=== PATIENT | female | born 1955 | race Caucasian/White ===

== ENCOUNTER 2018-11-27 09:39 | Emergency (ER) | payer OTHER ==
[~2018-11-27] VITALS: Ht 147.3 cm; Wt 70.3 kg
[2018-11-27 09:58] VITALS: BP_SYST 161
--- NOTE | 2018-11-27 10:39 | NUR ---
Patient to ER bed 8 to gown for evaluation. Side rails up. Report given to [place] BENITEZ.
--- NOTE | 2018-11-27 10:54 | NUR ---
Patient is awake, alert, and oriented x4. Patient states that yesterday she fell after parking her car, tripping on the cement bumper stop, striking her left hip, her left lower rib cage struck the sidewalk curb. Patient presents with bruising to right upper thigh, aching pain 10/10 to left lower rib cage.
--- NOTE | 2018-11-27 11:15 | NUR ---
ER Dr. Lobo at bedside examining patient.
--- NOTE | 2018-11-27 11:45 | NUR ---
Patient given written and verbal discharge instructions and verbalizes understanding. ER MD discussed with patient the results and treatment provided. Patient in stable condition. ID arm band removed. Rx of norco 5-325 given. Patient educated on pain management and to follow up with PMD. Pain Scale 3/10, MD is aware. Opportunity for questions provided and answered. Medication side effect fact sheet provided.
[2018-11-27 11:52] VITALS: BP_SYST 145
== END 2018-11-27 11:52 | disposition home or self-care (01) ==
LOC: SED 09:39
DX: S20.212A Contusion of left front wall of thorax, initial encounter (principal); W01.0XXA Fall on same level from slipping, tripping and stumbling without subsequent striking against object, initial encounter; Y93.89 Activity, other specified; Y92.89 Other specified places as the place of occurrence of the external cause; Y99.8 Other external cause status
CPT/HCPCS: 71045; 71100; 99284

== ENCOUNTER 2018-12-26 08:19 | Inpatient (IN) | payer OTHER ==
[~2018-12-26] VITALS: Ht 149.9 cm; Wt 68.0 kg
--- NOTE | 2018-12-26 08:19 | NUR ---
BROUGHT BACK TO BED #7 AND TRIAGED. REPORT GIVEN TO ZAHEER
[2018-12-26 08:20] VITALS: BP_SYST 167
--- NOTE | 2018-12-26 08:20 | NUR ---
PATIENT CAME IN COMPLAINING OF CHEST PAIN 11/24 THAT STARTED TODAY. PATIENT STATES SHE WAS VOMITING ALL NIGHT. PATIENT STATES SHE ATE CHICKEN WINGS LAST NIGHT AND STARTED VOMITING AFTER THAT. PATIENT DENIES NASUEA AT THE MOMENT. PATIENT LIGHTHEADED AND DIAPHORETIC. PATIENT DENIES SOB AND BLURRED VISION. PATIENT ALERT AND ORIENTED X4.
--- NOTE | 2018-12-26 08:37 | NUR ---
ER Dr. BANDA at bedside examining patient.
[2018-12-26] MEDS ORDERED: ASPIRIN 81 MG TAB.CHEW PO ONE (08:45)
[2018-12-26] MEDS ORDERED: NACL 0.9% 1,000 ML IV ONE ×2 (08:45→10:15)
[2018-12-26] MEDS ORDERED: NITROGLYCERIN 1 INCH (GM) OINT. TP ONE (08:45)
--- NOTE | 2018-12-26 09:00 | NUR ---
# 18 gauge angiocath placed to right AC. Use of asceptic technique. Opsite placed over site. Blood return noted. Blood for lab drawn from site. Flushed with 10 cc of normal saline. No evidence of infiltration noted. Patient tolerated well.
[2018-12-26 09:08] LABS: BASOPHILS % (AUTO) 0.3 % (0.0-2.0); HEMATOCRIT 37.1 % (36-48); LYMPHOCYTES # (AUTO) 1.2 K/uL (1.0-5.5); LYMPHOCYTES % (AUTO) 9.5 % (20.5-51.5); MEAN CORPUSCULAR HEMOGLOBIN 32 pg (27-31); MEAN CORPUSCULAR HGB CONC 35 % (32-36); MEAN CORPUSCULAR VOLUME 92 fL (79.0-98.0); NEUTROPHILS # (AUTO) 10.2 K/uL (1.8-7.7); NEUTROPHILS % (AUTO) 82.2 % (40.0-70.0); PLATELET COUNT (AUTO) 230 K/uL (130-430); RED BLOOD CELL COUNT(AUTO) 4.03 MIL/uL (4.2-6.2); RED CELL DISTRIBUTION WIDTH 15.4 % (9.0-15.0); WHITE BLOOD COUNT (AUTO) 12.4 K/uL (4.8-10.8)
--- NOTE | 2018-12-26 09:16 | NUR ---
PATIENT GETTING X RAY IN BED.
--- NOTE | 2018-12-26 09:25 | NUR ---
PATIENT COMPLAINING OF NAUSEA. DR SOLO FERNANDEZ.
[2018-12-26 09:27] LABS: CALCIUM 8.8 mg/dL (8.4-11.0); CREATININE 1.09 mg/dL (0.55-1.30)
[2018-12-26 09:31] LABS: ALBUMIN 4.4 g/dL (3.4-4.8); TOTAL BILIRUBIN 0.7 mg/dL (0.0-1.0)
[2018-12-26] MEDS ORDERED: ONDANSETRON HCL 4 MG/2 ML VIAL IVP ONE (09:45)
[2018-12-26 09:50] LABS: INR 1.1 (0.8-1.2); PROTHROMBIN TIME 10.7 SECS (9.5-12.5)
--- NOTE | 2018-12-26 09:52 | NUR ---
SPOKE TO PATIENT ABOUT END OF LIFE CARE. PATIENT STATES SHE IS FULL CODE.
[2018-12-26 09:57] LABS: BARBITURATE, URINE NEGATIVE (NEG <=200); BENZODIAZEPINE, URINE NEGATIVE (NEG <=150); CANNABINOID, URINE NEGATIVE (NEG <=50); COCAINE, URINE NEGATIVE (NEG <=150); METHAMPHETAMINES SCREEN,URINE NEGATIVE (NEG <=500); OPIATE, URINE NEGATIVE (NEG <=100); PHENCYCLIDINE SCREEN,URINE NEGATIVE (NEG <=25); UR TRICYCLIC ANTIDEPRESSANTS NEGATIVE (NEG <=300); URINE AMPHETAMINE NEGATIVE (NEG <=500); URINE METHADONE NEGATIVE (NEG <=200); URINE OXYCODONE SCREEN NEGATIVE (NEG <=100); URINE PROPOXYPHENE SCREEN NEGATIVE (NEG <=300)
[2018-12-26] MEDS ORDERED: POTASSIUM CHLORIDE 20 MEQ TAB.PRT.SR PO ONE (10:00)
[2018-12-26] MEDS ORDERED: POTASSIUM CHLORIDE 40 MEQ in NS 250 ML IV ONE (10:00)
[2018-12-26] MEDS ORDERED: PIPERACILLIN/TAZO 3.375 GM in NS 50 ML IV ONE (10:00)
--- NOTE | 2018-12-26 10:01 | NUR ---
Medication reconciliation completed with information provided by PATIENT. Any prior medication reconciliation on file was reviewed and corrected.
[2018-12-26 10:03] LABS: BILIRUBIN,URINE NEGATIVE (NEGATIVE); BLOOD, URINE 1+ (NEGATIVE); CLARITY/URINE CLEAR (CLEAR); COLOR,URINE YELLOW (YELLOW); GLUCOSE,URINE NEGATIVE (NEGATIVE); KETONES,URINE TRACE (NEGATIVE); LEUKOCYTE ESTERASE ,URINE TRACE (NEGATIVE); NITRITE, URINE NEGATIVE (NEGATIVE); PROTEIN URINE 2+ (NEGATIVE); UROBILINOGEN,URINE 0.2 (0.2-1.0)
[2018-12-26 10:05] LABS: BACTERIA,URINE FEW /HPF (None Seen); MUCUS,URINE 1+ /LPF (None Seen)
--- NOTE | 2018-12-26 10:06 | NUR ---
Patient will be admitted to care of DR PEÑA. Admitted to TELE unit. Belongings list completed. Summary report printed. Report will be given at bedside.
--- NOTE | 2018-12-26 10:12 | NUR ---
PATIENT LEFT TO CT VIA GURNEY IN STABLE CONDITION.
[2018-12-26] MEDS ORDERED: MORPHINE 2 MG/ML INJ. SYRINGE IVP PRN (10:15)
[2018-12-26] MEDS ORDERED: NITROGLYCERIN 0.4 MG TAB.SUBL SL PRN (10:15)
[2018-12-26] MEDS ORDERED: LORazepam 2 MG/ML VIAL IVP PRN (10:15)
[2018-12-26] MEDS ORDERED: ACETAMINOPHEN 325 MG TABLET PO PRN (10:15)
[2018-12-26] MEDS ORDERED: PIPERACILLIN/TAZOBACTAM 3.375 GM/VIAL (ZOSYN) IV ONE (10:21)
[2018-12-26] MEDS ORDERED: ATORVASTATIN 20 MG TABLET PO ONE (10:45)
--- NOTE | 2018-12-26 10:55 | NUR ---
# 20 gauge angiocath placed to LEFT HAND. Use of asceptic technique. Opsite placed over site. Blood return noted. Blood for lab drawn from site. Flushed with 10 cc of normal saline. No evidence of infiltration noted. Patient tolerated well.
--- NOTE | 2018-12-26 11:08 | NUR ---
Transfer to TELE via ACLS protocol. Licensed nurse present. IV present no signs or symptoms of infiltration.
--- NOTE | 2018-12-26 11:10 | NUR ---
Note Pt arrived from ED via gurney to room. Tele unit was applied and pt oriented to room and nursing routines and procedures at this time. Pt oriented to call light and questions/concerns were answered at this time. Pt has IV in right AC infusing IVF's and left wrist IV infusing K-rider.
[2018-12-26] MEDS ORDERED: METOPROLOL TARTRATE 25 MG TABLET PO ONE (11:15)
[2018-12-26] MEDS ORDERED: CLOPIDOGREL BISULFATE 75 MG TABLET PO ONE (11:15)
--- NOTE | 2018-12-26 11:20 | NUR ---
REPORT GIVEN TO LUCY BENITEZ ON TELE.
--- NOTE | 2018-12-26 11:28 | NUR ---
CONSULTATION PAGED REASON FOR CONSULTATION:CHEST PAIN WAS CONSULT CALLED?Y PERSON WHO WAS NOTIFIED:ROLO CONSULTING PHYSICIAN:[place] CONTRACT CLERK [employer] SPECIALTY:CARDIO CONTRACT CLERK [employer] PHONE NUMBER:[phone] ORDERING PHYSICIAN:[facility]
--- NOTE | 2018-12-26 11:30 | NUR ---
patient saw at this time. patient aaox 4. breathing even and unlabored. abdomen soft and non distended. bed low position, alarmed and locked. call lights within reach. has two iv access on the left hand #20 with potassium iv rider running at 68cc/hr infusing on well.and rt ac #20. saline lock.
[2018-12-26 11:39] VITALS: BP_SYST 153
--- NOTE | 2018-12-26 12:00 | NUR ---
Note Report given to Marely BENITEZ for continuation of care. Dr Weems at bedside assessing pt and writing orders at this time. Dr Weems removed Nitro paste patch at this time per pt. Pt stable at this time. Denies any chest pain or vomiting at this time. Call light within reach.
[2018-12-26] MEDS: cefTRIAXone 1 GM IVPB PREMIX 50 ML IV SCH (12:21)
[2018-12-26] MEDS: NACL 0.9% 1,000 ML IV SCH ×2 (12:23→21:28)
--- NOTE | 2018-12-26 12:27 | NUR ---
due medicine given. rocephin iv given at this time.
[2018-12-26 12:34] VITALS: BP_SYST 154
--- NOTE | 2018-12-26 12:48 | NUR ---
morphine sulfate 2 mg iv given for pain. made comfortable. able to void on the bedpan.
--- NOTE | 2018-12-26 13:50 | NUR ---
called dr lloyd for abdominal pain. awaiting to call back
--- NOTE | 2018-12-26 15:51 | NUR ---
patient had voided on the bedpan. no pain as verbalized
[2018-12-26 16:15] VITALS: BP_SYST 155
--- NOTE | 2018-12-26 18:53 | NUR ---
patient had eaten dinner. verbalized no discomfort noted. nor pain. voided in the bedpan
--- NOTE | 2018-12-26 19:23 | NUR ---
endorsed to incoming nurse Esha BENITEZ
--- NOTE | 2018-12-26 19:39 | NUR ---
OPENING NOTE Received patient awake, resting in bed, no s/sx of distress. Non-labored breathing on room air. IVF infusing at 50 ml/hr via IV left wrist, IV RAC is SL. She requested help to restroom. She sat on edge of bed w/ legs dangle and was not dizzy. I assisted her to restroom, she voided and returned to bed w/ steady gait. Bed is locked to lowest position, bed alarm on and instructed on use of call light. Updated board and reviewed plan of care.
[2018-12-26 20:00] VITALS: BP_SYST 158
--- NOTE | 2018-12-26 21:11 | NUR ---
C/O Nausea Patient presently denies chest pain. She did report nausea and further adds that she did not eat her dinner due to nausea and throat discomfort, which is due to prior vomiting.
--- NOTE | 2018-12-26 21:14 | NUR ---
s/w Dr. Atkins Spoke w/ Dr. Atkins regarding patient's c/o nausea; does not have medication for N/V. He provided order for Zofran 4mg Q6P N/V, read-back and entered order in [facility].
[2018-12-26] MEDS ORDERED: ONDANSETRON HCL 4 MG/2 ML VIAL IVP PRN (21:15)
[2018-12-26] MEDS: HYDROcodone/ACETAMIN 5-325 MG TAB (NORCO/ VICODIN) PO PRN (21:30)
[2018-12-26] MEDS: METOPROLOL TARTRATE 25 MG TABLET PO SCH (21:33)
[2018-12-26] MEDS: HEPARIN SODIUM,PORCINE 5000 UNITS/ML VIAL SUBCUT SCH (21:34)
--- NOTE | 2018-12-26 21:35 | NUR ---
Medications/ Zofran / IVF Zofran - IVP given first and then PO due medications given; provided education on side effects and patient verbalized understanding. She doesn't want to use bed ng and prefers to walk to restroom. She agreed to bed alarm. IVF fluids replaced with new bag. NS infusing via IV to left hand at 100 ml/hr as ordered. c/o moderate pain to mid back and [place] given as ordered for moderate pain. Call light w/in reach, will monitor.
[2018-12-26 22:40] VITALS: BP_SYST 152
--- NOTE | 2018-12-27 00:18 | NUR ---
Awake Patient is awake, she ambulated to the restroom and returned to bed, bed alarm turned on. Patient presently denies chest pain, back pain, or nausea. She is resting in comfortable position and watching t.v. and has no further needs.
[2018-12-27 01:11] VITALS: BP_SYST 160
[2018-12-27] MEDS: ZOLPIDEM TARTRATE 5 MG TABLET PO PRN (01:47)
--- NOTE | 2018-12-27 01:51 | NUR ---
Sleeping Pill Patient reports she can't sleep and further adds that hasn't slept these past two days. She requested a sleeping pill and administered Ambien as ordered. Educated on side effects and once again, bed alarm on and call light w/in reach. Will monitor.
--- NOTE | 2018-12-27 04:31 | NUR ---
IV pump alarming IV pump on low battery and alarming, connected to service loss control consultant. Patient ambulated to restroom for void and returned to bed. She reports that Ambien helped, she fell asleep and got rest. Bed safety maintained, call light w/in reach.
--- NOTE | 2018-12-27 05:19 | NUR ---
EKG Rt at bedside for EKG, patient tolerated.
[2018-12-27 05:45] VITALS: BP_SYST 148
--- NOTE | 2018-12-27 05:50 | NUR ---
Rounds Patient is awake, VSS; B/P 148/83. Denies pain or nausea. She is awake and watching t.v. Call light w/in reach.
[2018-12-27 06:03] LABS: BASOPHILS % (AUTO) 0.4 % (0.0-2.0); EOSINOPHILS % (AUTO) 0.7 % (0.0-4.0); HEMATOCRIT 33.6 % (36-48); HEMOGLOBIN 11.4 g/dL (12.0-16.0); LYMPHOCYTES # (AUTO) 1.3 K/uL (1.0-5.5); LYMPHOCYTES % (AUTO) 24.8 % (20.5-51.5); MEAN CORPUSCULAR HEMOGLOBIN 32 pg (27-31); MEAN CORPUSCULAR HGB CONC 34 % (32-36); MEAN CORPUSCULAR VOLUME 93 fL (79.0-98.0); MONOCYTES # (AUTO) 0.6 K/uL (0.0-1.0); MONOCYTES % (AUTO) 11.6 % (1.7-9.3); NEUTROPHILS # (AUTO) 3.2 K/uL (1.8-7.7); NEUTROPHILS % (AUTO) 62.5 % (40.0-70.0); PLATELET COUNT (AUTO) 159 K/uL (130-430); RED CELL DISTRIBUTION WIDTH 15.4 % (9.0-15.0); WHITE BLOOD COUNT (AUTO) 5.2 K/uL (4.8-10.8)
[2018-12-27] MEDS: NACL 0.9% 1,000 ML IV SCH ×3 (06:15→22:58)
[2018-12-27 06:39] LABS: ALANINE AMINOTRANSFERASE 19 U/L (12-78); ALBUMIN 3.3 g/dL (3.4-4.8); AMYLASE 23 U/L (0-100); ANION GAP 9 (5-15); ASPARTATE AMINOTRANSFERASE 29 U/L (10-37); CALCIUM 7.7 mg/dL (8.4-11.0); CHLORIDE 104 mmol/L (98-107); CREATININE 0.72 mg/dL (0.55-1.30); GLUCOSE 91 mg/dL (70-99); LIPASE 168 U/L (73-393); POTASSIUM 3.4 mmol/L (3.5-5.1); SODIUM SERUM 137 mmol/L (136-145); THYROID STIMULATING HORMONE 8.27 uIu/mL (0.36-3.74); TOTAL BILIRUBIN 0.8 mg/dL (0.0-1.0); UREA NITROGEN, BLOOD 6 mg/dL (8-21)
[2018-12-27 06:43] LABS: GFR AFRICAN AMERICAN 105 mL/min (>90)
--- NOTE | 2018-12-27 06:53 | NUR ---
CLOSING NOTE Patient resting in comfortable position, no sign/symptom of distress. Non-labored breathing on room air. Presently denies chest pain or nausea. IVF infusing well. Needs met throughout shift, will endorse care to oncoming nurse.
[2018-12-27 07:12] LABS: CHOLESTEROL 178 mg/dL (<200); HDL CHOLESTEROL 100 mg/dL (>55); LDL CHOLESTEROL 56 mg/dL (<100); TRIGLYCERIDES 61 mg/dL (30-150)
--- NOTE | 2018-12-27 07:15 | NUR ---
sbar report at the bedside by isela nurse. patient aaox 4. breathing even and unlabored. abdomen soft and non distended. has iv access on both arms. with iv fluids of normal saline at 100cc/hr infusing on well. bed in low position, alarmed and locked. call lights within reach. instructed to call for assistance.
[2018-12-27 08:04] VITALS: BP_SYST 142
[2018-12-27] MEDS: HEPARIN SODIUM,PORCINE 5000 UNITS/ML VIAL SUBCUT SCH ×2 (08:29→21:46)
[2018-12-27] MEDS: ASPIRIN 81 MG TAB.CHEW PO SCH (08:31)
[2018-12-27] MEDS: METOPROLOL TARTRATE 25 MG TABLET PO SCH ×2 (08:32→21:45)
[2018-12-27] MEDS: cefTRIAXone 1 GM IVPB PREMIX 50 ML IV SCH (08:32)
--- NOTE | 2018-12-27 08:41 | NUR ---
due medication given at this time. just had breakfast late tray given.
--- NOTE | 2018-12-27 08:41 | NUR ---
rocephin iv given at this time.
[2018-12-27] MEDS ORDERED: ATORVASTATIN 20 MG TABLET PO SCH (09:00)
[2018-12-27] MEDS ORDERED: CLOPIDOGREL BISULFATE 75 MG TABLET PO SCH (09:00)
--- NOTE | 2018-12-27 09:00 | NUR ---
seen by dr lloyd and evaluate the patient.
--- NOTE | 2018-12-27 10:00 | NUR ---
no pain nor acute distress noted.
--- NOTE | 2018-12-27 12:00 | NUR ---
had eaten lunch about 50% of food consumed. no nausea nor vomitting noted.
[2018-12-27 12:35] VITALS: BP_SYST 119
--- NOTE | 2018-12-27 14:00 | NUR ---
iv access both sides are infiltrated. removed placed tape on it. verbalized would like a new iv access line.
--- NOTE | 2018-12-27 15:59 | NUR ---
patient watching tv. and resting.
[2018-12-27 16:21] VITALS: BP_SYST 111
--- NOTE | 2018-12-27 16:32 | NUR ---
placed a new iv access on the left wrist #22. verbalized wants to walk first and relax, rest.
--- NOTE | 2018-12-27 17:23 | NUR ---
watching tv and resting.
--- NOTE | 2018-12-27 18:30 | NUR ---
had dinner tray eating slowly. no nausea nor vomitting noted. stable ambulatory goes to the bathroom
--- NOTE | 2018-12-27 19:21 | NUR ---
endorsed report to incoming nurse Amaury BENITEZ
--- NOTE | 2018-12-27 20:00 | NUR ---
INITIAL NOTES PT IS ALERT AND ORIENTED ; NOT IN ANY ACUTE DISTRESS; DENIED ANY CHEST PAIN OR SOB , NO C/O NAUSEA OR VOMITING ; VITALS ARE STABLE ; , ON IV FLUID , INFUSING TO LEFT WRIST 22 G; NO S/S OF ANY INFILTRATION NOTED ; BED IN LOW AND LOCK POSITION , PT REFUSED BED ALARM ;CALL YANEZ IN REACH ; ALL NEEDS MET ; WILL CONTINUE TO MONITOR PT .
--- NOTE | 2018-12-27 20:17 | NUR ---
PAGED PAGED DR. PEÑA REGARDING CRITICAL LAB RESULTS
--- NOTE | 2018-12-27 21:39 | NUR ---
CALLED BACK : DR ILDEFONSO AUGUSTIN CALLED BACK , MD NOTIFIED THAT PT S ONE OF THE BLOOD CULTURE CAME OUT POSITIVE FOR GRAM POSITIVE COCCI IN [place] . ORDERED VANCOMYCIN PER PHARMACY AND BLOOD CULTURE X 2 NOW . STATED HE WILL MAKE ROUNDS LATER .
[2018-12-27 21:40] VITALS: BP_SYST 140
[2018-12-27] MEDS: HYDROcodone/ACETAMIN 5-325 MG TAB (NORCO/ VICODIN) PO PRN (21:52)
--- NOTE | 2018-12-27 21:52 | NUR ---
MEDICATION; DUE MEDS GIVEN ; PT C/O PAIN MEDICATED WITH NORCO PER ORDER ;WAITING FOR PHARMACY TO VERIFY VANCOMYCIN ORDER ; LAB ALREADY NOTIFIED ABOUT THE BLOOD CULTURE ORDER , WAITING . PT NOTIFIED ABOUT THE BLOOD CULTURE RESULT .AND NOTIFIED ABOUT THE NEW CONSULT ORDERED . Addendum: 12/28/18 at 0258 by Amaury Colin RN EDUCATED PT ON HEPARIN , NO QUESTIONS AT THIS TIME .
[2018-12-27] MEDS ORDERED: VANCOMYCIN HCL 1 GM/NS PREMIX 250 ML IV SCH (22:00)
--- NOTE | 2018-12-27 22:56 | NUR ---
VANCOMYCIN: PER NEW ORDER VANCOMYCIN STARTED , EDUCATED PT ON POSSIBLE SIDE EFFECTS, ENCOURAGED PT TO CALL FOR ANY HELP.
[2018-12-27] MEDS ORDERED: VANCOMYCIN HCL 1000 MG/VIAL IV ONE (22:57)
--- NOTE | 2018-12-27 23:10 | NUR ---
RN NOTES: PT IS COMFORTABLE ; NO S/S OF ANY REACTION NOTED FROM VANCOMYCIN , MEDICATION IS STILL INFUSING . PT IS COMFORTABLE .
[2018-12-28] MEDS: ZOLPIDEM TARTRATE 5 MG TABLET PO PRN ×2 (00:17→21:42)
--- NOTE | 2018-12-28 00:20 | NUR ---
MERVIN: PT STATED SHE COULDN'T ABLE TO SLEEP PER ORDER MEDICATED PT WITH MERVIN . EDUCATED PT ON POSSIBLE SIDE EFFECTS AND ENCOURAGED TO CALL FOR ASSIST ; PT STILL REFUSED BED ALARM .
[2018-12-28 01:05] VITALS: BP_SYST 144
--- NOTE | 2018-12-28 01:45 | NUR ---
RN NOTES: PT IS SLEEPING ,RESPIRATION IS EVEN AND NON LABORED ; ALL NEEDS MET ; WILL CONTINUE TO MONITOR PT .
--- NOTE | 2018-12-28 02:51 | NUR ---
MD ROUNDS: DR ILDEFONSO AUGUSTIN MADE ROUNDS.
--- NOTE | 2018-12-28 03:59 | NUR ---
RN NOTES; PT IS SLEEPING , NOT IN ANY ACUTE DISTRESS; RESPIRATION IS EVEN AND NONLABORED ; WILL CONTINUE TO MONITOR PT .
--- NOTE | 2018-12-28 05:30 | NUR ---
RN ROUNDS: PT IS AWAKE , PT REQUESTED FOR BRUSH AND PASTE FOR BRUSHING , PROVIDED . PT IS COMFORTABLE ; NOT IN ANY ACUTE DISTRESS.
--- NOTE | 2018-12-28 07:02 | NUR ---
CLOSING NOTES; PT IS COMFORTABLE ,AWAKE, RESPIRATION IS EVEN AND NON LABORED ;NO C/O ANY CHEST PAIN , SOB , NAUSEA OR VOMITING ;ALL NEEDS MET ; WILL CONTINUE TO MONITOR AND WILL ENDORSE TO NEXT SHIFT NURSE .
[2018-12-28 07:13] LABS: BASOPHILS % (AUTO) 0.8 % (0.0-2.0); EOSINOPHILS # (AUTO) 0.1 K/uL (0.0-0.4); EOSINOPHILS % (AUTO) 2.6 % (0.0-4.0); HEMATOCRIT 32.9 % (36-48); LYMPHOCYTES # (AUTO) 1.3 K/uL (1.0-5.5); LYMPHOCYTES % (AUTO) 26.9 % (20.5-51.5); MEAN CORPUSCULAR HEMOGLOBIN 32 pg (27-31); MEAN CORPUSCULAR HGB CONC 34 % (32-36); MEAN CORPUSCULAR VOLUME 95 fL (79.0-98.0); MONOCYTES # (AUTO) 0.5 K/uL (0.0-1.0); MONOCYTES % (AUTO) 10.3 % (1.7-9.3); NEUTROPHILS # (AUTO) 2.9 K/uL (1.8-7.7); NEUTROPHILS % (AUTO) 59.4 % (40.0-70.0); PLATELET COUNT (AUTO) 139 K/uL (130-430); RED BLOOD CELL COUNT(AUTO) 3.48 MIL/uL (4.2-6.2); RED CELL DISTRIBUTION WIDTH 15.7 % (9.0-15.0); WHITE BLOOD COUNT (AUTO) 4.8 K/uL (4.8-10.8)
[2018-12-28 07:35] LABS: CALCIUM 7.7 mg/dL (8.4-11.0); CREATININE 0.75 mg/dL (0.55-1.30); POTASSIUM 3.4 mmol/L (3.5-5.1); TOTAL BILIRUBIN 0.6 mg/dL (0.0-1.0)
[2018-12-28 08:00] VITALS: BP_SYST 107
--- NOTE | 2018-12-28 08:00 | NUR ---
ASSUMPTION OF CARE: RECEIVED PT A/A/OX4, DX: DECREASED CARDIAC OUTPUT, R/T CHEST PAIN, NO C/O IMMEDIATE PAIN AT THIS TIME, TOLERATING WELL, VS WNL, NO DISTRESS NOTED, BREATH SOUNDS ARE CLEAR, BREATHING UNLABORED, IV SITE INTACT, PATENT, NO REDNESS OR SWELLING, ORIENTED TO UNIT, CALL LIGHT PLACED WITHIN REACH, WILL CON'T TO MONITOR AND ASSESS.
[2018-12-28] MEDS: METOPROLOL TARTRATE 25 MG TABLET PO SCH ×2 (08:44→21:42)
[2018-12-28] MEDS: ASPIRIN 81 MG TAB.CHEW PO SCH (08:44)
[2018-12-28] MEDS: HEPARIN SODIUM,PORCINE 5000 UNITS/ML VIAL SUBCUT SCH ×2 (08:46→21:45)
--- NOTE | 2018-12-28 09:15 | NUR ---
NEW CAR DRIVER: MORNING MEDS GIVEN, PER ORDERED BY Giovana, TOLERATED WELL, WILL CON'T TO MONITOR AND ASSESS.
--- NOTE | 2018-12-28 09:30 | NUR ---
VISIT: AT BEDSIDE FOR ASSESSMENT OF PT, NEW ORDERS GIVEN, WILL CON'T TO MONITOR, CON'T WITH POC.
[2018-12-28] MEDS: VANCOMYCIN HCL 750 MG/NS 250 ML IV SCH ×2 (11:03→22:04)
[2018-12-28] MEDS: cefTRIAXone 1 GM IVPB PREMIX 50 ML IV SCH (11:05)
[2018-12-28 11:13] VITALS: BP_SYST 108
[2018-12-28] MEDS: NACL 0.9% 1,000 ML IV SCH ×2 (13:17→21:44)
[2018-12-28] MEDS: HYDROcodone/ACETAMIN 5-325 MG TAB (NORCO/ VICODIN) PO PRN ×2 (14:51→21:43)
[2018-12-28 15:13] VITALS: BP_SYST 140
[2018-12-28 20:00] VITALS: BP_SYST 141
--- NOTE | 2018-12-28 21:15 | NUR ---
ASSIST Patient out of bed ambulates with steady gait fall measures intact patient alert & oriented .
--- NOTE | 2018-12-29 | NUR ---
NORCO 5/325 MG PO GIVEN FOR ACUTE PAIN 08/24 AND HELPFUL .
[2018-12-29 00:05] VITALS: BP_SYST 139
--- NOTE | 2018-12-29 04:55 | NUR ---
VANCOMYCIN 750 MG IVPB administer as ordered no s/x of ADVERSE reaction noted skin dry warm .
--- NOTE | 2018-12-29 04:58 | NUR ---
Hourly Rounding patient Resting call forbes with PT no complaints made .
[2018-12-29 07:55] VITALS: BP_SYST 143
--- NOTE | 2018-12-29 08:00 | NUR ---
OPENING NOTES, PT IS AAOX4, DENIES PAIN, NO SOB, NO RESP DISTRESS. NO C/O CHEST PAIN. IV FLUIDS INFUSING WELL. NO INFILTRATION ON IV SITE. SAFETY PRECAUTION IN PLACE. CALL LIGHT IN REACH. BED IN LOW POSITION. WILL CONT TO MONITOR.
[2018-12-29] MEDS: ASPIRIN 81 MG TAB.CHEW PO SCH (08:14)
[2018-12-29] MEDS: cefTRIAXone 1 GM IVPB PREMIX 50 ML IV SCH (08:15)
[2018-12-29] MEDS: METOPROLOL TARTRATE 25 MG TABLET PO SCH (08:15)
[2018-12-29] MEDS: HEPARIN SODIUM,PORCINE 5000 UNITS/ML VIAL SUBCUT SCH (08:18)
--- NOTE | 2018-12-29 10:00 | NUR ---
PATIENT IN BED, NO C/O PAIN. SAFETY PRECAUTION IN PLACE. CALL LIGHT IN REACH.
[2018-12-29] MEDS ORDERED: METO25TA6 PO (10:35)
[2018-12-29] MEDS ORDERED: ASA81 PO (10:35)
[2018-12-29] MEDS ORDERED: LEVO750T45 PO (10:35)
[2018-12-29] MEDS ORDERED: LIP10 PO (10:43)
[2018-12-29 11:11] VITALS: BP_SYST 139
[2018-12-29 11:16] VITALS: BP_SYST 139
--- NOTE | 2018-12-29 11:45 | NUR ---
D/C Patient Patient given medication reconciliation form and D/C instructions. Exit Care provided. Patient verbalized understanding. MD discussed with patient the results and treatment provided. Ambulatory with steady gait for discharge to home. Patient in stable condition, ID band removed. IV catheter removed, intact and dressing applied, no active bleeding. Rx of asa, atorvastatin, levaquin, lopressor given. Patient educated on pain management. All belongings sent with patient.
== END 2018-12-29 11:47 | disposition home or self-care (01) | DRG 391 ==
LOC: SED 08:19 → STU 10:05 → SMU 12-28 11:21
PROVIDERS: ADMIT General Practice; ATTEND General Practice
DX: K52.9 Noninfective gastroenteritis and colitis, unspecified (principal); K65.9 Peritonitis, unspecified; N39.0 Urinary tract infection, site not specified; E87.1 Hypo-osmolality and hyponatremia; K57.90 Diverticulosis of intestine, part unspecified, without perforation or abscess without bleeding; R07.9 Chest pain, unspecified; E87.6 Hypokalemia; E86.0 Dehydration; K44.9 Diaphragmatic hernia without obstruction or gangrene; K76.0 Fatty (change of) liver, not elsewhere classified; I10 Essential (primary) hypertension; I25.10 Atherosclerotic heart disease of native coronary artery without angina pectoris; Z79.899 Other long term (current) drug therapy; Z79.82 Long term (current) use of aspirin
CPT/HCPCS: 36415; 36600; 71045; 80053; 80061; 80307; 81000-TC; 82150-TC; 82803-TC; 83605; 83690-TC; 83735-TC; 83880; 84443-TC; 84484; 85025; 85379; 85610-TC; 87040-TC; 87086; 93005; 93970; 96361; 96365; 96368; 96375; 99285; G0378; J0696; J1644; J2270; J2405; J2543; J3370; J3480; J7030; J7050